=== PATIENT | female | born 1935 | race Caucasian/White ===

== ENCOUNTER 2016-08-08 16:04 | Inpatient (IN) | payer MEDICAID, MEDICARE ==
[~2016-08-08] VITALS: Ht 152.4 cm; Wt 75.9 kg
[2016-08-08] MEDS ORDERED: ED DILTIAZEM DRIP 125 ML IV ONE (16:34)
[2016-08-08] MEDS ORDERED: Furosemide 40 MG/4 ML VIAL ONE (17:58)
[2016-08-08] MEDS ORDERED: Furosemide 20 MG/2 ML VIAL IV SCH (20:33)
[2016-08-08] MEDS ORDERED: NITROGLYCERIN SL 0.4 MG TAB SL PRN (20:35)
[2016-08-08] MEDS ORDERED: ACETAMINOPHEN 325 MG TAB PO PRN (20:35)
[2016-08-08] MEDS ORDERED: GLUCAGON 1 MG VIAL IM PRN (20:35)
[2016-08-08] MEDS ORDERED: TEMAZEPAM 7.5 MG CAP PO PRN (20:35)
[2016-08-08] MEDS ORDERED: ASPIRIN 81 MG CHEW TAB PO ONE (20:35)
[2016-08-08] MEDS ORDERED: SODIUM CHLORIDE 0.9% FLUSH BAG 500 ML IV PRN (20:35)
[2016-08-08] MEDS ORDERED: NITROGLYCERIN 50 MG/250 ML IV PRN (20:35)
[2016-08-08] MEDS ORDERED: ONDANSETRON 4 MG VIAL IV PRN (20:35)
[2016-08-08] MEDS ORDERED: LORAZEPAM 0.5 MG TAB PO PRN (20:35)
[2016-08-08] MEDS ORDERED: DEXTROSE 50% SYRINGE 50 ML IV PRN (20:35)
[2016-08-08] MEDS ORDERED: DOCUSATE SOD 100 MG CAP PO PRN (20:35)
[2016-08-08] MEDS ORDERED: TRAMADOL 50 MG TAB PO PRN (20:35)
[2016-08-08] MEDS ORDERED: MORPHINE 2 MG/ML SYR IV PRN (20:35)
[2016-08-08] MEDS ORDERED: SALINE FLUSH 10 ML FLUSH PRN (20:35)
[2016-08-08 20:38] VITALS: BP_SYST 120; BP_SYST 122; RESP 18; TEMP 97.5
[2016-08-08 20:39] VITALS: Ht 152.4 cm; Wt 75.9 kg
[2016-08-08] MEDS ORDERED: KCL CR 10 MEQ TAB PO SCH (21:00)
[2016-08-08] MEDS: Atorvastatin 10 MG TAB PO SCH (21:03)
[2016-08-08] MEDS: PANTOPRAZOLE 40 MG TAB PO SCH (21:03)
[2016-08-08] MEDS: KCL CR 10 MEQ TAB PO SCH (21:03)
[2016-08-08] MEDS ORDERED: Furosemide 20 MG TAB PO ONE (22:00)
[2016-08-08] MEDS ORDERED: METOLAZONE 2.5 MG TAB PO ONE (22:10)
[2016-08-08] MEDS: ENOXAPARIN 60 MG/0.6 ML SYR SUBQ SCH (23:10)
[2016-08-08 23:44] VITALS: BP_SYST 126; RESP 20; TEMP 97.6
[2016-08-09] VITALS (16 sets, daily range): BP systolic 96–129; RESP 16–18; TEMP 97.3–98.4
[2016-08-09] MEDS: PANTOPRAZOLE 40 MG TAB PO SCH ×2 (06:27→16:30)
[2016-08-09] MEDS ORDERED: Furosemide 20 MG/2 ML VIAL IV SCH (08:00)
[2016-08-09] MEDS ORDERED: ASPIRIN EC 81 MG TAB PO SCH (08:00)
[2016-08-09] MEDS: SALINE FLUSH 10 ML FLUSH SCH ×2 (09:46→20:51)
[2016-08-09] MEDS: METOPROLOL TART 25 MG TAB PO SCH ×2 (09:47→21:55)
[2016-08-09] MEDS: ENOXAPARIN 60 MG/0.6 ML SYR SUBQ SCH ×2 (09:47→21:56)
[2016-08-09] MEDS: KCL CR 10 MEQ TAB PO SCH ×2 (09:47→20:51)
[2016-08-09] MEDS: Furosemide 20 MG/2 ML VIAL IV SCH ×2 (09:47→17:44)
[2016-08-09] MEDS ORDERED: KCL CR 20 MEQ TAB PO ONE (13:35)
[2016-08-09] MEDS ORDERED: IRON SUCROSE COMPLEX 400 MG in SODIUM CHLORIDE 0.9% 250 ML IV ONE (13:40)
[2016-08-09] MEDS ORDERED: CARDIZEM 1 MG/ML DRIP 125 ML IV SCH (18:10)
[2016-08-09] MEDS: Atorvastatin 10 MG TAB PO SCH (20:52)
[2016-08-10 03:45] VITALS: BP_SYST 115; RESP 16; TEMP 97.5
[2016-08-10] MEDS: PANTOPRAZOLE 40 MG TAB PO SCH ×2 (06:20→16:55)
[2016-08-10] MEDS ORDERED: TEMAZEPAM 7.5 MG CAP PO PRN (07:15)
[2016-08-10 07:59] VITALS: BP_SYST 123; RESP 16; TEMP 97.6
[2016-08-10] MEDS: ENOXAPARIN 60 MG/0.6 ML SYR SUBQ SCH ×2 (09:16→21:30)
[2016-08-10] MEDS: Furosemide 20 MG/2 ML VIAL IV SCH ×2 (09:16→16:55)
[2016-08-10] MEDS: METOPROLOL TART 25 MG TAB PO SCH (09:16)
[2016-08-10] MEDS: SALINE FLUSH 10 ML FLUSH SCH ×2 (09:16→21:31)
[2016-08-10] MEDS: KCL CR 10 MEQ TAB PO SCH ×2 (09:17→21:31)
[2016-08-10 11:38] VITALS: BP_SYST 120; RESP 16; TEMP 97.9
[2016-08-10 15:36] VITALS: BP_SYST 130; RESP 18; TEMP 97.9
[2016-08-10] MEDS ORDERED: DIGOXIN 0.25 MG TAB PO ONE (16:35)
[2016-08-10] MEDS ORDERED: DIGOXIN 0.125 MG TAB PO ONE (16:35)
[2016-08-10] MEDS ORDERED: MISSING DOSE XX ONE (16:55)
[2016-08-10 19:30] VITALS: BP_SYST 109; RESP 18; TEMP 98.5
[2016-08-10] MEDS ORDERED: SPIRONOLACTONE 25 MG TAB PO STA (21:31)
[2016-08-10] MEDS: Atorvastatin 10 MG TAB PO SCH (21:31)
[2016-08-10] MEDS: METOPROLOL TART 50 MG TAB PO SCH (21:31)
[2016-08-10 23:04] VITALS: BP_SYST 121; RESP 20; TEMP 98
[2016-08-11 02:45] VITALS: BP_SYST 95; RESP 18; TEMP 98.3
[2016-08-11 07:30] VITALS: BP_SYST 131; RESP 18; TEMP 97.6
[2016-08-11 07:50] VITALS: RESP 18
[2016-08-11] MEDS: METOPROLOL TART 50 MG TAB PO SCH ×2 (09:56→21:02)
[2016-08-11] MEDS: Furosemide 20 MG/2 ML VIAL IV SCH ×2 (09:56→16:47)
[2016-08-11] MEDS: Losartan 25 MG TAB PO SCH (09:56)
[2016-08-11] MEDS: KCL CR 10 MEQ TAB PO SCH ×2 (09:56→21:02)
[2016-08-11] MEDS: PANTOPRAZOLE 40 MG TAB PO SCH ×2 (09:56→16:47)
[2016-08-11] MEDS: ENOXAPARIN 60 MG/0.6 ML SYR SUBQ SCH (09:56)
[2016-08-11] MEDS: SPIRONOLACTONE 25 MG TAB PO SCH (09:57)
[2016-08-11] MEDS: SALINE FLUSH 10 ML FLUSH SCH ×2 (09:57→20:00)
[2016-08-11] MEDS: DIGOXIN 0.125 MG TAB PO SCH (11:58)
[2016-08-11 12:25] VITALS: BP_SYST 103; RESP 18; TEMP 98
[2016-08-11] MEDS ORDERED: METOLAZONE 2.5 MG TAB PO ONE (16:05)
[2016-08-11 19:47] VITALS: BP_SYST 122; RESP 18; TEMP 97.7
[2016-08-11] MEDS: APIXABAN 5 MG TAB PO SCH (21:02)
[2016-08-11] MEDS: Atorvastatin 10 MG TAB PO SCH (21:02)
[2016-08-11 23:04] VITALS: BP_SYST 105; RESP 18; TEMP 97.3
[2016-08-12 02:36] VITALS: BP_SYST 102; RESP 16; TEMP 97.4
[2016-08-12] MEDS: PANTOPRAZOLE 40 MG TAB PO SCH ×2 (06:12→16:38)
[2016-08-12 07:41] VITALS: BP_SYST 114; RESP 16; TEMP 97.2
[2016-08-12] MEDS: Furosemide 20 MG/2 ML VIAL IV SCH ×2 (09:09→16:38)
[2016-08-12] MEDS: SALINE FLUSH 10 ML FLUSH SCH (09:09)
[2016-08-12] MEDS: Losartan 25 MG TAB PO SCH (09:10)
[2016-08-12] MEDS: SPIRONOLACTONE 25 MG TAB PO SCH (09:10)
[2016-08-12] MEDS: APIXABAN 5 MG TAB PO SCH (09:10)
[2016-08-12] MEDS: KCL CR 10 MEQ TAB PO SCH (09:10)
[2016-08-12] MEDS: METOPROLOL TART 50 MG TAB PO SCH (09:10)
[2016-08-12 11:43] VITALS: BP_SYST 89; RESP 16; TEMP 97.2
[2016-08-12] MEDS: DIGOXIN 0.125 MG TAB PO SCH (12:05)
[2016-08-12 12:55] VITALS: BP_SYST 94
[2016-08-12 15:20] VITALS: BP_SYST 114; RESP 16; TEMP 98.6
[2016-08-12 18:43] VITALS: BP_SYST 114; RESP 16; TEMP 98.6
== END 2016-08-12 18:59 | disposition home or self-care (01) | DRG 308 ==
LOC: ENRESERVTM → CANRESERV → ENRESERV → ENRESERVDT → ER 16:04 → EMR 19:10 → ENPENDDIS 19:10 → PCU 20:07
PROVIDERS: ADMIT Specialist; ATTEND Specialist
CPT/HCPCS: 36415; 71010; 74220; 80048; 80053; 82550; 82553; 82947; 83735; 83880; 84484; 85025; 85610; 85730; 93005; 94799; 96374; 96375